=== PATIENT | male | born 1930 | race Caucasian/White ===

== ENCOUNTER 2020-05-28 18:07 | Inpatient (IN) ==
--- NOTE | 2020-05-28 18:32 | Emergency Department Note ---
HPI General Chief complaint: Shortness of Breath/Dyspnea Stated complaint: shortness of breath Time Seen by Provider: 05/28/20 18:21 Source: patient Mode of arrival: ambulatory Limitations: no limitations History of Present Illness HPI Narrative: Narrative: 89-year-old patient presented with a history of symptoms consistent with upper respiratory infection that began 1 day ago. Associated symptoms include cough. Patient also reports concern for fever/myalgias. Symptoms are currently reported as mild to moderate in severity and continuous in duration and are progressive. Is exacerbated with coughing/not sleeping well. It is alleviated by rest. Patient has not been seen for this recently. Patient reports they do have sick contacts. Patient has/has not had current immunizations. The patient reports symptoms are similar to previous flu/URI. Patient denies any neck pain, chest pain, shortness of breath, abdominal pain, back pain, numbness or tingling in the extremities, skin rash, chills, vomiting, or diarrhea no other pain or complaints at this time Related Data Home Medications Medication Instructions Recorded Confirmed Vitamin D3 12/02/16 05/07/20 gabapentin 300 mg PO BID 12/02/16 05/28/20 naproxen sodium 220 mg capsule 220 mg PO BID PRN 04/26/19 05/07/20 umeclidinium 62.5 mcg-vilanterol 1 inh INHALATION Q24H 04/26/19 05/28/20 25 mcg/actuation powdr for inhalation aspirin 81 mg tablet,delayed 81 mg PO QDAY 05/07/20 05/28/20 release atorvastatin 20 mg tablet 20 mg PO QDAY 05/07/20 05/28/20 docusate sodium 100 mg capsule 100 mg PO BID 05/07/20 05/28/20 finasteride 5 mg tablet 5 mg PO QDAY 05/07/20 05/28/20 furosemide 20 mg tablet 20 mg PO QAM 05/07/20 05/28/20 glucosamine sulfate 500 mg tablet 500 mg PO BID 05/07/20 05/28/20 omega-3 fatty acids 1,000 mg 1,000 mg PO QDAY 05/07/20 05/28/20 capsule potassium chloride 10 mEq 10 meq PO QDAY 05/07/20 05/28/20 capsule,extended release tamsulosin 0.4 mg capsule 0.8 mg PO DAILY cap 05/07/20 05/28/20 Allergies Allergy/AdvReac Type Severity Reaction Status Date / Time No Known Drug Allergies Allergy Verified 05/28/20 18:09 Review of Systems ROS ROS Narrative: Narrative: All systems ED: reviewed and negative except as stated. FOR[facility]LY [facility] Narrative Patient History Narrative: Narrative: Medical/Surgical/Family History All Active Problems (Updated 05/28/20 @ 22:36 by Al Dorsey MD) Community acquired pneumonia (Acute) Acute and chronic respiratory failure ([id number]) (Acute) Carpal tunnel syndrome of right wrist (Acute) Skin tear (Acute) Sciatica (Acute) Rib injury (Acute) Medical History (Updated 05/28/20 @ 22:36 by Al Dorsey MD) Skin tear (Acute) Social History Smoking Status: Former smoker Exam Narrative Narrative: General: Alert, interactive, appropriate Head: Atraumatic, normocephalic Eyes: Extraocular movements intact, sclera anicteric, no conjunctival injection Ears: Pinnae normal, no discharge Mouth: Oral mucosa moist, no acute swelling or evidence of infection Nares: No nasal discharge, patent bilaterally Neck: Trachea midline, full range of motion Chest: Symmetrical chest wall rise, tachypnea and hypoxia Cardiovascular: Patient with excellent perfusion to the extremities; with tachycardia Skin: Patient without area of erythema, patient is without rash, no ascending lymphangitis or lymphadenopathy Extremities: Full range of motion joints, no obvious deformities Neuro: Alert, oriented x3, cranial nerves II through XII grossly intact, patient without lateralizing findings such as weakness, or abnormal reflexes Psychiatric: Normal affect, normal mood General Limitations: no limitations Course Vital Signs Vital signs: Vital Signs Temperature 100.3 F H 05/28/20 18:07 Pulse Rate 131 H 05/28/20 18:07 Respiratory Rate 22 05/28/20 18:07 Blood Pressure 149/79 05/28/20 18:07 Pulse Oximetry (%) 90 05/28/20 18:07 Temperature 100.3 F H 05/28/20 18:07 Pulse Rate 93 H 05/28/20 22:16 Respiratory Rate 20 05/28/20 22:16 Blood Pressure 134/67 05/28/20 22:16 Pulse Oximetry (%) 94 05/28/20 22:16 [facility] Narrative Medical decision making narrative: Narrative: This patient is presenting with symptoms and findings consistent with URI/influenza. Does have a fever and shortly after arrival was placed on oxygen section secondary to hypoxia. They are not immunocompromised. They have no signs of meningitis on exam. The differential diagnosis also included COVID 19 was obtained at this time along with influenza swab CBC CMP and chest x-ray as well as an EKG. The lungs are with findings to suggest pneumonia. Timeframe there are moderate symptoms point toward a bacterial cause to their infection and therefore antibiotics are necessary. Patient is given 2 g of Rocephin in the emergency department, Covid pending at time of admit patient with elevated white blood cell count as well as infiltrates on chest x-ray and hypoxia. Discussed the case with Dr. East and the consensus medical opinion is to admit to the hospital for ongoing management. Lab Data Result diagrams: 05/28/20 18:43 05/28/20 18:43 Labs: Lab Results 05/28/20 05/28/20 05/28/20 Range/Units 18:43 18:43 18:43 WBC 15.8 H (4.5-11.0) K/mcL RBC 4.57 (4.50-5.90) M/mcL Hgb 13.2 L (13.5-16.5) g/dL Hct 41.4 (41.0-55.0) % MCV 90.6 (80.0-100.0) fL MCH 28.9 (26.0-34.0) pg MCHC 31.9 (31.0-36.0) g/dL RDW 15.0 H (11.5-14.5) % Plt Count 141 (140-440) K/mcL MPV 11.9 H (7.4-10.4) fL Neut % (Auto) 91.9 H (38.0-78.0) % Lymph % (Auto) 1.9 L (15.0-49.0) % [place] % (Auto) 6.0 (1.0-12.0) % Eos % (Auto) 0.1 (0.0-7.0) % Baso % (Auto) 0.1 (0.0-2.0) % Lymph # (Auto) 0.30 L (1.50-4.80) K/mcL [place] # (Auto) 0.95 H (0.10-0.90) K/mcL Eos # (Auto) 0.01 (0.00-0.70) K/mcL Baso # (Auto) 0.02 (0.00-0.20) K/mcL Absolute Neutrophils 14.54 H (1.80-8.00) K/mcL VBG Lactic Acid 1.1 (0.5-2.0) mmol/L Sodium 135 (133-145) mmol/L Potassium 4.2 (3.3-5.1) mmol/L Chloride 101 (96-108) mmol/L Carbon Dioxide 24 (22-30) mmol/L Anion Gap 10.0 (8.0-16.0) BUN 26 H (8-23) mg/dL Creatinine 1.1 (0.7-1.2) mg/dL GFR Calculation 59 Glucose 133 H (70-105) mg/dL Calcium 9.7 (8.6-10.4) mg/dL Total Bilirubin 1.0 (0.1-1.0) mg/dL AST 152 H (<40) U/L ALT 135 H (<40) U/L Alkaline Phosphatase 93 (39-117) U/L Troponin T (<0.03) ng/mL Total Protein 6.4 (5.9-8.4) gm/dL Albumin 3.6 (3.2-5.2) gm/dL Globulin 2.8 (2.2-3.7) gm/dL Albumin/Globulin Ratio 1.3 (1.0-2.3) Procalcitonin (<0.10) ng/mL 05/28/20 05/28/20 Range/Units 18:43 18:43 WBC (4.5-11.0) K/mcL RBC (4.50-5.90) M/mcL Hgb (13.5-16.5) g/dL Hct (41.0-55.0) % MCV (80.0-100.0) fL MCH (26.0-34.0) pg MCHC (31.0-36.0) g/dL RDW (11.5-14.5) % Plt Count (140-440) K/mcL MPV (7.4-10.4) fL Neut % (Auto) (38.0-78.0) % Lymph % (Auto) (15.0-49.0) % [place] % (Auto) (1.0-12.0) % Eos % (Auto) (0.0-7.0) % Baso % (Auto) (0.0-2.0) % Lymph # (Auto) (1.50-4.80) K/mcL [place] # (Auto) (0.10-0.90) K/mcL Eos # (Auto) (0.00-0.70) K/mcL Baso # (Auto) (0.00-0.20) K/mcL Absolute Neutrophils (1.80-8.00) K/mcL VBG Lactic Acid (0.5-2.0) mmol/L Sodium (133-145) mmol/L Potassium (3.3-5.1) mmol/L Chloride (96-108) mmol/L Carbon Dioxide (22-30) mmol/L Anion Gap (8.0-16.0) BUN (8-23) mg/dL Creatinine (0.7-1.2) mg/dL GFR Calculation Glucose (70-105) mg/dL Calcium (8.6-10.4) mg/dL Total Bilirubin (0.1-1.0) mg/dL AST (<40) U/L ALT (<40) U/L Alkaline Phosphatase (39-117) U/L Troponin T < 0.01 (<0.03) ng/mL Total Protein (5.9-8.4) gm/dL Albumin (3.2-5.2) gm/dL Globulin (2.2-3.7) gm/dL Albumin/Globulin Ratio (1.0-2.3) Procalcitonin 0.06 (<0.10) ng/mL Discharge Plan Patient/Caregiver Discharge Instructions Pt seen by LOOM [facility]UNER/PA only: No Clinical Impression: Community acquired pneumonia Qualifiers: Laterality: unspecified laterality Qualified Code(s): J18.9 - Pneumonia, unspec ified organism Acute and chronic respiratory failure ([id number]) Qualifiers: Respiratory failure complication: hypoxia Qualified Code(s): J96.21 - Acute and chronic respiratory failure with hypoxia Patient Disposition: Xfer As Inpt ([facility]) Condition: Serious Follow up with: Eri Cameron MD [Primary Care Provider] - Prescriptions: No Action umeclidinium 62.5 mcg-vilanterol 25 mcg/actuation powdr for inhalation 62.5-25 mcg/actuation blister with device 1 inh INHALATION Q24H RF: 0 naproxen sodium [Aleve] 220 mg capsule 220 mg PO BID PRN (Reason: Pain) RF: 0 furosemide [Lasix] 20 mg tablet 20 mg PO QAM RF: 0 potassium chloride 10 mEq capsule, extended release 10 meq PO QDAY RF: 0 atorvastatin [Lipitor] 20 mg tablet 20 mg PO QDAY RF: 0 finasteride [Proscar] 5 mg tablet 5 mg PO QDAY RF: 0 docusate sodium [Colace] 100 mg capsule 100 mg PO BID RF: 0 glucosamine sulfate 500 mg tablet 500 mg PO BID RF: 0 omega-3 fatty acids [Fish Oil Concentrate] 1,000 mg capsule 1,000 mg PO QDAY RF: 0 aspirin 81 mg tablet,delayed release (DR/EC) 81 mg PO QDAY RF: 0 gabapentin 300 MG capsule 300 mg PO BID RF: 0 Vitamin D3 RF: 0 tamsulosin 0.4 mg capsule 0.8 mg PO DAILY RF: 0
--- NOTE | 2020-05-28 19:05 | XRay Report ---
CLINICAL INFORMATION: CP/dyspnea COMPARISON: 2018 chest x-ray. FINDINGS: The heart is mildly enlarged, but unchanged. Mediastinum and pulmonary vessels are normal. Moderate patchy infiltrate has developed in the right base with smaller patchy infiltrate in the left base. No effusion. IMPRESSION: Moderate right and small patchy bibasilar infiltrates. Interpreted and Authenticated by: Bnejamin Connelly 05/28/20
[2020-05-28 20:49] LABS: Basophils # (Auto) 0.02 K/mcL (0.00-0.20); Basophils % (Auto) 0.1 % (0.0-2.0); Eosinophils # (Auto) 0.01 K/mcL (0.00-0.70); Eosinophils % (Auto) 0.1 % (0.0-7.0); Hematocrit 41.4 % (41.0-55.0); Hemoglobin 13.2 g/dL (13.5-16.5); Lymphocytes % (Auto) 1.9 % (15.0-49.0); Mean Cell Volume 90.6 fL (80.0-100.0); Mean Corpuscular HGB Conc 31.9 g/dL (31.0-36.0); Mean Platelet Volume 11.9 fL (7.4-10.4); Monocytes # (Auto) 0.95 K/mcL (0.10-0.90); Neutrophils % (Auto) 91.9 % (38.0-78.0); Platelet Count 141 K/mcL (140-440); RBC 4.57 M/mcL (4.50-5.90); WBC 15.8 K/mcL (4.5-11.0)
[2020-05-28] MEDS ORDERED: cefTRIAXone 2 GM VIAL IV ONE (20:52)
[2020-05-28 21:29] LABS: ALT/SGPT 135 U/L (<40); AST/SGOT 152 U/L (<40); Albumin 3.6 gm/dL (3.2-5.2); Albumin/Globulin Ratio 1.3 (1.0-2.3); Alkaline Phosphatase 93 U/L (39-117); Blood Urea Nitrogen 26 mg/dL (8-23); Calcium 9.7 mg/dL (8.6-10.4); Carbon Dioxide 24 mmol/L (22-30); Chloride 101 mmol/L (96-108); Globulin 2.8 gm/dL (2.2-3.7); Glomerular Filtration Rate 59; Glucose 133 mg/dL (70-105)
--- NOTE | 2020-05-28 22:33 | Internal Med History&Physical ---
HPI History of Present Illness Patient information: Note initiated : 05/28/20 at 10:32 pm Service Date, if different from initiated Date: [] Patient: Noah Vega a 89 y/o M admitted on for shortness of breath. Chief Complaint: History of present illness: Mr. Vega is a 89 year old M with a history of COPD/hyperlipidemia who presented to the ER with increasing shortness of breath and upper respiratory symptoms that started roughly tachycardic. Curb 65 score over 100 hours prior to presentation. Patient endorses that symptoms followed shortly after he was trying to take his regular home medication and and choked on one of the pill. He felt the pill disintegrate in his throat and inhaled most of the contents in his lung.. Following which he has gotten increasingly short of breath along with persistent cough. He however denies associated fever, headache, sick contacts. Initial work-up in the ER was consistent with multifocal chest infiltrate suggestive of pneumonia. COVID-19 test was ordered. White count at 15.8, highly suspicious for bacterial pneumonia. Patient was started on antibiotic coverage and subsequently hospitalist service was consulted. At the time of evaluation patient is alert and oriented. He is fairly short of breath. Requiring 2 L oxygen. Tachypneic and tachycardic. Curb 65 score over 100. Patient denies rash, joint pain, headache, myalgias, urinary difficulty Review of systems 10 point review system was performed and is negative except for ones discussed above PFSH PFSH All Active Problems (Updated 05/28/20 @ 22:36 by Al Dorsey MD) Community acquired pneumonia (Acute) Acute and chronic respiratory failure ([id number]) (Acute) Carpal tunnel syndrome of right wrist (Acute) Skin tear (Acute) Sciatica (Acute) Rib injury (Acute) Medical History (Updated 05/28/20 @ 22:36 by Al Dorsey MD) Skin tear (Acute) Social History smoking status: Former smoker MEDS/ALLERGIES Home Medications and Allergies Home Medications Medication Instructions Recorded Confirmed Type Vitamin D3 12/02/16 05/07/20 History gabapentin 300 mg PO BID 12/02/16 05/28/20 History naproxen sodium 220 mg capsule 220 mg PO QAM 04/26/19 05/28/20 History umeclidinium 62.5 mcg-vilanterol 1 inh INHALATION Q24H 04/26/19 05/28/20 History 25 mcg/actuation powdr for inhalation aspirin 81 mg tablet,delayed 81 mg PO QDAY 05/07/20 05/28/20 History release atorvastatin 20 mg tablet 20 mg PO QDAY 05/07/20 05/28/20 History docusate sodium 100 mg capsule 100 mg PO BID 05/07/20 05/28/20 History finasteride 5 mg tablet 5 mg PO QDAY 05/07/20 05/28/20 History furosemide 20 mg tablet 20 mg PO QAM 05/07/20 05/28/20 History glucosamine sulfate 500 mg tablet 500 mg PO BID 05/07/20 05/28/20 History omega-3 fatty acids 1,000 mg 1,000 mg PO QDAY 05/07/20 05/28/20 History capsule potassium chloride 10 mEq 10 meq PO QDAY 05/07/20 05/28/20 History capsule,extended release tamsulosin 0.4 mg capsule 0.8 mg PO DAILY cap 05/07/20 05/28/20 History Allergies Allergy/AdvReac Type Severity Reaction Status Date / Time No Known Drug Allergies Allergy Verified 05/28/20 18:09 EXAM Constitutional Vitals: Temp Pulse Resp BP Pulse Ox 100.3 F H 93 H 20 134/67 94 05/28/20 18:07 05/28/20 22:16 05/28/20 22:16 05/28/20 22:16 05/28/20 22:16 Head normocephalic Oral cavity moist No ear nose discharge Eye movement symmetrical Neck supple no lymphadenopathy S1-S2 occasionally irregular Tachypneic/labored breathing, rhonchi Nondistended nontender abdomen Lower extremity no cyanosis clubbing or joint swelling Skin no suspicious lesion Psych anxious but alert cooperative Neuro normal higher function DATA Data Completed and Pending Labs: Labs from last 24 hours 05/28/20 05/28/20 05/28/20 18:43 18:43 18:43 WBC RBC Hgb Hct MCV MCH MCHC RDW Plt Count MPV Neut % (Auto) Lymph % (Auto) [place] % (Auto) Eos % (Auto) Baso % (Auto) Lymph # (Auto) [place] # (Auto) Eos # (Auto) Baso # (Auto) Absolute Neutrophils VBG Lactic Acid Sodium Potassium Chloride Carbon Dioxide Anion Gap BUN Creatinine GFR Calculation Glucose Calcium Total Bilirubin AST ALT Alkaline Phosphatase Troponin T < 0.01 Total Protein Albumin Globulin Albumin/Globulin Ratio Procalcitonin 0.06 SARS-CoV-2 (PCR) Pending 05/28/20 05/28/20 05/28/20 18:43 18:43 18:43 WBC 15.8 H RBC 4.57 Hgb 13.2 L Hct 41.4 MCV 90.6 MCH 28.9 MCHC 31.9 RDW 15.0 H Plt Count 141 MPV 11.9 H Neut % (Auto) 91.9 H Lymph % (Auto) 1.9 L [place] % (Auto) 6.0 Eos % (Auto) 0.1 Baso % (Auto) 0.1 Lymph # (Auto) 0.30 L [place] # (Auto) 0.95 H Eos # (Auto) 0.01 Baso # (Auto) 0.02 Absolute Neutrophils 14.54 H VBG Lactic Acid 1.1 Sodium 135 Potassium 4.2 Chloride 101 Carbon Dioxide 24 Anion Gap 10.0 BUN 26 H Creatinine 1.1 GFR Calculation 59 Glucose 133 H Calcium 9.7 Total Bilirubin 1.0 AST 152 H ALT 135 H Alkaline Phosphatase 93 Troponin T Total Protein 6.4 Albumin 3.6 Globulin 2.8 Albumin/Globulin Ratio 1.3 Procalcitonin SARS-CoV-2 (PCR) A/P Narrative A/P Narrative: * Bilateral pneumonia-aspiration versus community-acquired bacterial. On antibiotic coverage. Await sputum cultures. Curb 65 score 4/PSI over 100. Admit as inpatient maintain aspiration precautions, * Hypoxic aspiratory failure secondary to pneumonia. Continue supplemental oxygen/bronchodilators * Sepsis with elevated white count-management per guidelines of antibiotics/pancultures/crystalloids * Hyperlipidemia continue statin * BPH continue finasteride/tamsulosin * Neuropathy continue gabapentin * Full code * Prophylax Heparin Plan * Inpatient admission * Antibiotic coverage * Aspiration precautions * Wean oxygen as tolerated * PT OT nutrition support * Pre-existing medical condition management home medications * Discharge planning Time Spent With Patient Time: Total time spent is greater than 50% in coordination of care (as documented) at patient's floor/unit and/or counseling patient:
[2020-05-28] MEDS ORDERED: ACETAMINOPHEN 650 MG/65 ML BOTTLE IV PRN (23:15)
[2020-05-28] MEDS ORDERED: 0.9 % SODIUM CHLORIDE 1,000 ML IV SCH (23:15)
[2020-05-28] MEDS ORDERED: POTASSIUM CHLORIDE 40 MEQ in DEXTROSE 5% IN WATER 500 ML IV PRN (23:15)
[2020-05-28] MEDS ORDERED: BISACODYL 10 MG SUPP.RECT PR PRN (23:15)
[2020-05-28] MEDS ORDERED: cefTRIAXone 2 GM in DEXTROSE 5% IN WATER 50 ML IV SCH (23:15)
[2020-05-28] MEDS ORDERED: ONDANSETRON 4 MG ODT TABLET SL PRN (23:15)
[2020-05-28] MEDS ORDERED: ACETAMINOPHEN 325 MG TABLET PO PRN (23:15)
[2020-05-28] MEDS ORDERED: POTASSIUM CHLORIDE 20 MEQ PACKET PO PRN (23:15)
[2020-05-28] MEDS ORDERED: AZITHROMYCIN 500 MG in DEXTROSE 5% IN WATER 250 ML IV SCH (23:15)
[2020-05-28] MEDS ORDERED: MAGNESIUM SULFATE 2 GM/50 ML BAG IV PRN (23:15)
[2020-05-28] MEDS ORDERED: POLYETHYLENE GLYCOL 3350 17 GM PACKET PO PRN (23:15)
[2020-05-28] MEDS ORDERED: MELATONIN 3 MG TABLET PO PRN (23:15)
[2020-05-28] MEDS ORDERED: ONDANSETRON 4 MG/2 ML VIAL IV PRN (23:15)
[2020-05-28] MEDS ORDERED: TAMSULOSIN 0.4 MG CAPSULE PO SCH (23:45)
[2020-05-28] MEDS ORDERED: FINASTERIDE 5 MG TABLET PO SCH (23:45)
[2020-05-29] MEDS ORDERED: 0.9 % SODIUM CHLORIDE 10 ML SYRINGE IV SCH (06:00)
[2020-05-29 07:40] LABS: ALT/SGPT 106 U/L (<40); AST/SGOT 78 U/L (<40); Albumin 3.5 gm/dL (3.2-5.2); Albumin/Globulin Ratio 1.3 (1.0-2.3); Alkaline Phosphatase 83 U/L (39-117); Bilirubin,Direct 0.3 mg/dL (<0.3); Bilirubin,Total 0.7 mg/dL (0.1-1.0); Blood Urea Nitrogen 22 mg/dL (8-23); Calcium 9.8 mg/dL (8.6-10.4); Carbon Dioxide 28 mmol/L (22-30); Chloride 101 mmol/L (96-108); Globulin 2.6 gm/dL (2.2-3.7); Glomerular Filtration Rate 59; Glucose 127 mg/dL (70-105); Lactate Dehydrogenase 158 U/L (135-225); Phosphorous 2.2 mg/dL (2.5-4.5); Triglycerides 50 mg/dL (<150); Uric Acid 5.3 mg/dL (2.5-8.0)
[2020-05-29] MEDS ORDERED: POTASSIUM CHLORIDE 10 MEQ TABLET PO SCH (08:00)
[2020-05-29 08:29] LABS: Anisocytosis 1+ (None Seen); Band Neutrophils % 2 % (0-10); Eosinophils % (Manual) 2 % (0-7); Hematocrit 41.6 % (41.0-55.0); Hemoglobin 13.2 g/dL (13.5-16.5); Lymphocytes % 11 % (15-49); Mean Cell Volume 91.2 fL (80.0-100.0); Mean Corpuscular HGB Conc 31.7 g/dL (31.0-36.0); Mean Platelet Volume 11.8 fL (7.4-10.4); Monocytes % (Manual) 8 % (1-12); Platelet Count 133 K/mcL (140-440); Platelet Estimate DECREASED (Normal); RBC 4.56 M/mcL (4.50-5.90); RBC Morphology ABNORMAL (Normal); Red Cell Distribution Width 14.9 % (11.5-14.5); Segmented Neutrophils % 77 % (38-78)
[2020-05-29] MEDS ORDERED: GABAPENTIN 300 MG CAPSULE PO SCH (09:00)
[2020-05-29] MEDS ORDERED: ASPIRIN 81 MG TAB.CHEW PO SCH (09:00)
[2020-05-29] MEDS ORDERED: FUROSEMIDE 20 MG TABLET PO SCH (09:00)
[2020-05-29] MEDS ORDERED: guaiFENesin 600 MG TAB.SR.12H PO SCH (09:00)
[2020-05-29] MEDS ORDERED: ATORVASTATIN 20 MG TABLET PO SCH (09:00)
[2020-05-29] MEDS ORDERED: DOCUSATE SODIUM 100 MG CAPSULE PO SCH (09:00)
[2020-05-29] MEDS ORDERED: TAMSULOSIN 0.4 MG CAPSULE PO SCH (09:00)
[2020-05-29] MEDS ORDERED: FINASTERIDE 5 MG TABLET PO SCH (09:00)
[2020-05-29] MEDS ORDERED: HEPARIN 5,000 UNIT/ML VIAL SQ SCH (09:00)
[2020-05-29] MEDS: FISH OIL 1,000 MG CAPSULE PO SCH ×2 (09:16→12:42)
[2020-05-29] MEDS: DOCUSATE SODIUM 100 MG CAPSULE PO SCH ×2 (09:16→12:42)
--- NOTE | 2020-05-29 09:31 | Discharge Summary ---
Discharge Provider Provider Patient information: Note initiated : 05/29/20 at 9:28 am Service Date, if different from initiated Date: [] Patient: Noah Vega a 89 y/o M admitted on 05/28/20 for shortness of breath. Chief Complaint: Discharge diagnosis * Bilateral pneumonia-aspiration versus community-acquired bacterial. Clinically improved. Continue antibiotic coverage for additional 5 days * Hypoxic respiratory failure secondary to pneumonia. Clinically resolved now on room air * Sepsis with elevated white count-management per guidelines of antibiotics/pancultures/crystalloids * Hyperlipidemia continue statin * BPH continue finasteride/tamsulosin * Neuropathy continue gabapentin Brief hospital course History of present illness: Mr. Vega is a 89 year old M with a history of COPD/hyperlipidemia who presented to the ER with increasing shortness of breath and upper respiratory symptoms that started roughly tachycardic. Curb 65 score over 100 hours prior to presentation. Patient endorses that symptoms followed shortly after he was trying to take his regular home medication and and choked on one of the pill. He felt the pill disintegrate in his throat and inhaled most of the contents in his lung.. Following which he has gotten increasingly short of breath along with persistent cough. He however denies associated fever, headache, sick contacts. Initial work-up in the ER was consistent with multifocal chest infiltrate woods ggestive of pneumonia. COVID-19 test was ordered. White count at 15.8, highly suspicious for bacterial pneumonia. Patient was started on antibiotic coverage and subsequently hospitalist service was consulted. At the time of evaluation patient is alert and oriented. He is fairly short of breath. Requiring 2 L oxygen. Tachypneic and tachycardic. Curb 65 score over 100. Patient denies rash, joint pain, headache, myalgias, urinary difficulty 05/29-patient doing well. Now on room air. Feels a lot better. Denies cough or shortness of breath. Requesting discharge. COVID-19 pending, discharging home on oral antibiotics with isolation measures until Covid test negative. Date of admission: 05/28/20 23:10 Discharge date: 05/29/20 Primary care physician: Eri Cameron Consults: 05/28/20 Consult to Physician [CONS] Stat Comment: Consulting Provider: Corwin Andres Reason For Exam: Physician to Consult Discharge Meds Discharge Medications Home Medications gabapentin 300 mg PO BID 12/02/16 [History Confirmed 05/28/20 Last Taken Unknown] naproxen sodium 220 mg capsule 220 mg PO QAM 04/26/19 [History Confirmed 05/28/20 Last Taken Unknown] umeclidinium 62.5 mcg-vilanterol 25 mcg/actuation powdr for inhalation 1 inh INHALATION Q24H 04/26/19 [History Confirmed 05/28/20 Last Taken Unknown] aspirin 81 mg tablet,delayed release 81 mg PO QDAY 05/07/20 [History Confirmed 05/28/20 Last Taken Unknown] atorvastatin 20 mg tablet 20 mg PO QDAY 05/07/20 [History Confirmed 05/28/20 Last Taken Unknown] docusate sodium 100 mg capsule 100 mg PO BID 05/07/20 [History Confirmed 05/28/20 Last Taken Unknown] finasteride 5 mg tablet 5 mg PO QDAY 05/07/20 [History Confirmed 05/28/20 Last Taken Unknown] furosemide 20 mg tablet 20 mg PO QAM 05/07/20 [History Confirmed 05/28/20 Last Taken Unknown] glucosamine sulfate 500 mg tablet 500 mg PO BID 05/07/20 [History Confirmed 05/28/20 Last Taken Unknown] omega-3 fatty acids 1,000 mg capsule 1,000 mg PO QDAY 05/07/20 [History Confirmed 05/28/20 Last Taken Unknown] potassium chloride 10 mEq capsule,extended release 10 meq PO QDAY 05/07/20 [History Confirmed 05/28/20 Last Taken Unknown] tamsulosin 0.4 mg capsule 0.8 mg PO DAILY cap 05/07/20 [History Confirmed 05/28/20 Last Taken Unknown] azithromycin 500 mg PO QDAY 3 Days #2 tab 05/29/20 [Rx Last Taken Unknown] cefdinir 300 mg PO BID #10 cap 05/29/20 [Rx Last Taken Unknown] COURSE Hospital Course Hospital course: . Discharge diagnosis: . Time Spent with Patient Time attestation: Total time spent providing and/or coordinating discharge services: EXAM Constitutional Vitals: Temp Pulse Resp BP Pulse Ox 98.4 F 88 22 136/87 99 05/28/20 23:10 05/29/20 04:13 05/29/20 04:13 05/29/20 04:01 05/29/20 04:13 Discharge Data Data Completed and Pending Labs on day of discharge: Labs from last 24 hours 10/13/20 10/13/20 10/12/20 05:05 05:05 18:43 WBC 14.0 H RBC 4.56 Hgb 13.2 L Hct 41.6 MCV 91.2 MCH 28.9 MCHC 31.7 RDW 14.9 H Plt Count 133 L MPV 11.8 H Neut % (Auto) Lymph % (Auto) Stewart % (Auto) Eos % (Auto) Baso % (Auto) Lymph # (Auto) Stewart # (Auto) Eos # (Auto) Baso # (Auto) Seg Neutrophils % 77 Band Neutrophils % 2 Lymphocytes % 11 L Monocytes % (Manual) 8 Eosinophils % (Manual) 2 Absolute Neutrophils Platelet Estimate Decreased A RBC Morphology Abnormal A Anisocytosis 1+ A VBG Lactic Acid Sodium 139 Potassium 4.4 Chloride 101 Carbon Dioxide 28 Anion Gap 10.0 BUN 22 Creatinine 1.1 GFR Calculation 59 Glucose 127 H Uric Acid 5.3 Calcium 9.8 Phosphorus 2.2 L Magnesium 2.1 Total Bilirubin 0.7 Direct Bilirubin 0.3 H GGT 38 AST 78 H ALT 106 H Alkaline Phosphatase 83 Lactate Dehydrogenase 158 Troponin T Total Protein 6.1 Albumin 3.5 Globulin 2.6 Albumin/Globulin Ratio 1.3 Triglycerides 50 Procalcitonin SARS-CoV-2 (PCR) Pending 05/28/20 05/28/20 05/28/20 18:43 18:43 18:43 WBC RBC Hgb Hct MCV MCH MCHC RDW Plt Count MPV Neut % (Auto) Lymph % (Auto) Stewart % (Auto) Eos % (Auto) Baso % (Auto) Lymph # (Auto) Stewart # (Auto) Eos # (Auto) Baso # (Auto) Seg Neutrophils % Band Neutrophils % Lymphocytes % Monocytes % (Manual) Eosinophils % (Manual) Absolute Neutrophils Platelet Estimate RBC Morphology Anisocytosis VBG Lactic Acid 1.1 Sodium Potassium Chloride Carbon Dioxide Anion Gap BUN Creatinine GFR Calculation Glucose Uric Acid Calcium Phosphorus Magnesium Total Bilirubin Direct Bilirubin GGT AST ALT Alkaline Phosphatase Lactate Dehydrogenase Troponin T < 0.01 Total Protein Albumin Globulin Albumin/Globulin Ratio Triglycerides Procalcitonin 0.06 SARS-CoV-2 (PCR) 05/28/20 05/28/20 18:43 18:43 WBC 15.8 H RBC 4.57 Hgb 13.2 L Hct 41.4 MCV 90.6 MCH 28.9 MCHC 31.9 RDW 15.0 H Plt Count 141 MPV 11.9 H Neut % (Auto) 91.9 H Lymph % (Auto) 1.9 L Stewart % (Auto) 6.0 Eos % (Auto) 0.1 Baso % (Auto) 0.1 Lymph # (Auto) 0.30 L Stewart # (Auto) 0.95 H Eos # (Auto) 0.01 Baso # (Auto) 0.02 Seg Neutrophils % Band Neutrophils % Lymphocytes % Monocytes % (Manual) Eosinophils % (Manual) Absolute Neutrophils 14.54 H Platelet Estimate RBC Morphology Anisocytosis VBG Lactic Acid Sodium 135 Potassium 4.2 Chloride 101 Carbon Dioxide 24 Anion Gap 10.0 BUN 26 H Creatinine 1.1 GFR Calculation 59 Glucose 133 H Uric Acid Calcium 9.7 Phosphorus Magnesium Total Bilirubin 1.0 Direct Bilirubin GGT AST 152 H ALT 135 H Alkaline Phosphatase 93 Lactate Dehydrogenase Troponin T Total Protein 6.4 Albumin 3.6 Globulin 2.8 Albumin/Globulin Ratio 1.3 Triglycerides Procalcitonin SARS-CoV-2 (PCR) Discharge Plan Patient/Caregiver Discharge Instructions Activity: increase activity as tolerated Diet: Regular Diet Instructions: COVID-19, Azithromycin (By mouth), Cefdinir (By mouth), Sepsis (GEN), Pneumonia (GEN) Activity Restrictions/Additional Instructions: Discharging home on oral antibiotics, Continue antibiotic for additional 5 days. Your prescriptions have been e-faxed to [facility] for you to pick up and delivery driver Isolation measures until Covid test negative. Follow-up PCP in 5 to 7 days Resume regular diet, activity as tolerated. Return to ER if worsening shortness of breath, abdominal pain, nausea and vomiting noted This discharge packet is provided to you to help keep you informed about your care. We want to ensure you get everything you need when you go home. You will also be receiving a call from us in a few days to follow up with you and see how you are doing since your discharge. This gives us a chance to listen to any concerns you maybe experiencing since you were discharged or any additional needs you may have, as well as providing us feedback on your care experience. We strive to always provide excellent care and thank you for your feedback and for choosing [facility]. Prescriptions: New azithromycin 500 mg tablet 500 mg PO QDAY 3 Days Qty: 2 RF: 0 cefdinir 300 MG capsule 300 mg PO BID Qty: 10 RF: 0 Continued umeclidinium 62.5 mcg-vilanterol 25 mcg/actuation powdr for inhalation 62.5-25 mcg/actuation blister with device 1 inh INHALATION Q24H RF: 0 naproxen sodium [Aleve] 220 mg capsule 220 mg PO QAM RF: 0 furosemide [Lasix] 20 mg tablet 20 mg PO QAM RF: 0 potassium chloride 10 mEq capsule, extended release 10 meq PO QDAY RF: 0 atorvastatin [Lipitor] 20 mg tablet 20 mg PO QDAY RF: 0 finasteride [Proscar] 5 mg tablet 5 mg PO QDAY RF: 0 docusate sodium [Colace] 100 mg capsule 100 mg PO BID RF: 0 glucosamine sulfate 500 mg tablet 500 mg PO BID RF: 0 omega-3 fatty acids [Fish Oil Concentrate] 1,000 mg capsule 1,000 mg PO QDAY RF: 0 aspirin 81 mg tablet,delayed release (DR/EC) 81 mg PO QDAY RF: 0 gabapentin 300 MG capsule 300 mg PO BID RF: 0 tamsulosin 0.4 mg capsule 0.8 mg PO DAILY RF: 0 Follow Up Plan Follow up with: Eri Cameron MD [Primary Care Provider] - 06/05/20 12:00 pm Patient Disposition: Home, Self-Care Prognosis: Serious Rehab Potential: Good I certify that the patient requires SNF services: No Overall status at discharge: patient is progressing back to baseline Discharge Date/Time: 05/29/20 12:20 Discharge Comment: WC to vehicle w/ QUALITY VTE Deep Vein Thrombosis/Pulmonary Embolism Present on Admission: No
[2020-05-29] MEDS ORDERED: SENNOSIDES/DOCUSATE SODIUM 1 TAB TABLET PO SCH (21:00)
== END 2020-05-29 12:20 | disposition home or self-care (01) | DRG 871 ==
LOC: ED 18:07 → ICU 23:10
PROVIDERS: ADMIT Internal Medicine; ATTEND Internal Medicine